=== PATIENT | female | born 1985 | race Caucasian/White ===

== ENCOUNTER 2022-03-15 14:01 | Emergency (ER) | payer OTHER, SELFPAY ==
[2022-03-15 14:08] VITALS: BP 180/112; PULSE 114; RESP 18; TEMP 37.2; O2SAT 98
--- NOTE | 2022-03-15 16:53 | ED.NAVMDI ---
HPI - Nausea/Vomiting/Diarrhea General Chief complaint: Nausea/Vomiting/Diarrhea Stated complaint: nausea X 5 days weak Time Seen by Provider: 03/15/22 16:45 Source: patient, RN notes reviewed and old records reviewed Mode of arrival: ambulatory Limitations: no limitations History of Present Illness HPI Narrative: 36-year-old female who presents to [facility] with complaints of upper epigastric discomfort, has not been able to keep any food or fluids down since . Patient's blood pressure is elevated and she says she feels like her heart is beating out of her chest, she is afebrile, SaO2 is 98% on room air. Patient does states she has some back pain but that is not unusual for her, denies any history of kidney stones.Patient reports small formed stool this morning. MD elicited complaint: nausea, vomiting and abdominal pain (epigastric region) Onset (ago): day(s) (5) Description of vomiting: food contents and watery Associated nausea: Yes Exacerbating factors: eating and other (drinking any fluids) Treatment prior to arrival: other (tums) Related Data Home Medications Medication Instructions Recorded Confirmed No Home Medications 03/15/22 03/15/22 Allergies Allergy/AdvReac Type Severity Reaction Status Date / Time Penicillins Allergy Unknown Verified 03/15/22 15:59 Review of Systems Review of Systems: CONSTITUTIONAL: Denies fever, chills, or sweats. ENT: Denies rhinorrhea, congestion, sore throat, or otalgia. CARDIOVASCULAR: Denies chest pain, palpitations, or edema. RESPIRATORY: Denies cough or dyspnea. GASTROINTESTINAL: Reports upper epigastric abdominal pain, nausea, vomiting, no diarrhea. GENITOURINARY: Denies dysuria or hematuria. SKIN: Denies rash or itching. MUSCULOSKELETAL: Reports back pain,no joint pain, or myalgia. NEUROLOGIC: Denies headache, numbness, reports weakness. All systems reviewed & are unremarkable except as noted in HPI and below PMFSH Surgical History Surgical History (Updated 03/20/22 @ 20:00 by Helen Rivero NP) Previous section x3 Social History Social History (Updated 03/20/22 @ 20:08 by Helen Rivero NP) Smoking status: Never smoker Alcohol intake: never Substance use: never Living arrangements: with family Gender identity (if verbalized by the patient): Female Comments At time of signature, agree with nursing past medical, surgical, social and family history. There is no relevant family history pertinent to the presenting complaint Exam Narrative: GENERAL: Well-appearing, well-nourished, and in no acute distress. HEAD: Normocephalic, atraumatic. EYES: PERRLA, conjunctivae clear, and EOMI. ENT: Nares clear. Mucous membranes moist. Oropharynx without edema, erythema, or lesions. Tonsils not enlarged and without exudate. NECK: Supple. No lymphadenopathy CHEST: Speaks in full sentences. No respiratory distress. HEART: Regular rate and rhythm. ABDOMEN: Soft, flat, nondistended. No guarding, rebound tenderness, or rigid. No pulsatilla masses. Bowel sounds present in all four quadrants. No organomegaly. Negative Adkins?s sign. No periumbilical tenderness.positive for some upper epigastric tenderness, No Supra public tenderness or distension. Good femoral pulses bilaterally. No hernia noted. No scars or surface trauma. Positive for nausea and vomiting. SKIN: Warm, dry, no rash. NEURO:? Alert and oriented x3. PSYCH: Normal mood and affect Course Course Emergency Course: Patient is aware of diagnosis, understands and agrees to treatment plan.? Anticipatory guidance given.? Patient agrees to follow-up as directed and is aware of reasons to seek care at the emergency department. Portions of this record may have been created with voice recognition software Level of Care: Express Care Visit Vital Signs Vital signs: Vital Signs Temperature 37.2 C 03/15/22 14:08 Pulse Rate 114 H 03/15/22 14:08 Respiratory Rate 18 03/15
== END 2022-03-15 17:10 | disposition short-term general hospital (02) ==
PROVIDERS: Emergency Provider Registered Nurse; PCP Physician Assistant
DX: R10.13 Epigastric pain (principal); E86.0 Dehydration
CPT/HCPCS: 81003; 99212; G0463

== ENCOUNTER 2023-07-11 18:44 | Emergency (ER) | payer OTHER, SELFPAY ==
[2023-07-11 18:49] VITALS: BP 155/94; PULSE 87; RESP 20; TEMP 36.7; O2SAT 95
--- NOTE | 2023-07-11 18:49 | ED.ABDPAIN ---
HPI - Abdominal Pain General Chief Complaint: Abdominal Pain Stated Complaint: abdominal pain Time Seen by Provider: 07/11/23 18:46 Source: patient Mode of arrival: ambulatory Limitations: no limitations History of Present Illness HPI narrative: 38-year-old female with a history of diverticulitis presents to the ER with a 2 day history of -- nausea/ vomiting which started yesterday but has improved today -- loose stools. No blood or mucus noted. -- intermittent left lower quadrant abdominal pain. No fever or chills. Mother had the history of colon cancer MD elicited complaint: abdominal pain Pertinent past history: none Onset (ago): day(s) ( Started yesterday) Pain Consistency: intermittent Location: LLQ Severity: mild Pain scale (0-10): 6 Quality: aching Radiation: LLQ Migration to: no migration Exacerbating factors: nothing Relieving factors: nothing Associated symptoms: nausea, vomiting and diarrhea Related Data Home Medications Medication Instructions Recorded Confirmed No Home Medications 03/15/22 07/11/23 Allergies Allergy/AdvReac Type Severity Reaction Status Date / Time Penicillins Allergy Unknown Verified 07/11/23 18:56 Review of Systems Review of Systems: All systems reviewed & are unremarkable except as noted in HPI and below Constitutional: Constitutional: Reports as per HPI and Reports no additional constitutional complaints Eyes: Eyes: Reports as per HPI and Reports no additional eye complaints ENT: Reports system reviewed and no additional complaints, except as documented and Reports as per HPI Cardiovascular: Cardiovascular: Reports as per HPI and Reports no additional cardiovascular complaints Respiratory: Respiratory: Reports as per HPI and Reports no additional respiratory complaints Gastrointestinal: Gastrointestinal: Reports as per HPI, Reports no additional gastrointestinal complaints and Reports abdominal pain Comments: left lower quadrant abdominal pain Genitourinary: Genitourinary: Reports no additional female genitourinary complaints and Reports as per HPI Musculoskeletal: Musculoskeletal: Reports no additional musculoskeletal complaints and Reports as per HPI Integumentary/Breasts: Skin/Breast: Reports system reviewed and no additional complaints, except as docu and Reports as per HPI Neurologic: Reports system reviewed and no additional complaints, except as documented and Reports as per HPI Psychiatric: Psychiatric: Reports no additional psychiatric complaints and Reports as per HPI Endocrine: Endocrine: Reports no additional endocrine complaints and Reports as per HPI Hematologic/Lymphatic: Hematologic/Lymphatic: Reports no additional hematologic/lymphatic complaints and Reports as per HPI Allergic/Immunologic: Allergic/Immunologic: Reports no additional allergic/immunologic complaints and Reports as per [facility] Past Medical History Medical History (Updated 07/11/23 @ 20:16 by Jeffrey Rhodes MD) Diverticulitis Surgical History Surgical History Previous section x3 Family History Family History (Updated 07/11/23 @ 19:06 by Jeffrey Rhodes MD) Other Colon cancer Social History Social History Smoking status: Never smoker Alcohol intake: never Substance use: never Living arrangements: with family Gender identity (if verbalized by the patient): Female Exam Narrative: afebrile. Const: General: healthy appearing Nutritional Appearance: well nourished Orientation/consciousness: patient oriented x3 Limitations: no limitations HENMT: Head: normal to inspection Ears: external ears normal Face/Nose/Sinus: Normal external nose present Face and sinus: normal facial exam Mouth: Yes Normal oral and palatal mucosa present Throat: posterior oropharynx normal Eyes: Conjunctivae: conjunctivae norm
--- NOTE | 2023-07-11 19:10 | PC.NURSE ---
patient report received from JAIME Phillips for continuation of care into shift mgr.
[2023-07-11 19:12] LABS: Basophils Absolute Auto 0.06 K/mm3 (0.00-0.10); Basophils Percent Auto 0.9 % (0.0-1.0); Eosinophils Percent Auto 1.4 % (1.0-6.0); Hematocrit 40.7 % (35.0-49.0); Hemoglobin 13.2 g/dL (12.0-15.0); Immature Granulocyte Absolute 0.02 K/mm3 (0.00-0.00); Immature Granulocyte Percent A 0.3 % (0.0-0.0); Lymphocytes Absolute Auto 2.06 K/mm3 (1.10-4.50); Lymphocytes Percent Auto 29.6 % (18.0-42.0); Mean Corpuscular HGB Conc 32.4 g/dL (32-36); Mean Corpuscular Hemoglobin 29.6 pg (27.0-31.0); Mean Corpuscular Volume 91.3 fL (78.0-102.0); Mean Platelet Volume 8.7 fl (9.2-11.8); Monocytes Percent Auto 5.7 % (2.0-11.0); Neutrophils Absolute Auto 4.33 K/mm3 (1.70-7.20); Neutrophils Percent Auto 62.1 % (50.0-70.0); Platelet Count Result 326 K/mm3 (150-420); Red Blood Count 4.46 M/mm3 (4.20-5.40); Red Cell Distribution Width 14.5 % (11.6-14.4)
[2023-07-11 19:13] LABS: Appearance Urine Clear (Clear); Bilirubin Urine Negative (Negative); Blood Urine Trace-intact (Negative); Color Urine Light Yellow (Yellow); Glucose Urine UA Negative (Negative); Ketones Urine Negative (Negative); Leukocyte Esterase Ur Negative LEU/UL (Negative); Nitrate Urine Negative (Negative); Protein Urine Negative (Negative); Specific Grav Ur <= 1.005 (1.010-1.020); Urobilinogen Urine 0.2 mg/dL (0.2-1.0)
[2023-07-11 19:18] LABS: Add Urine Microscopic? YES; Bacteria Urine Trace /hpf; RBC Urine 0-2 /hpf (0-2); Squamous Epithelial Cell Urine Rare /hpf (Few); WBC Urine 0-3 /hpf (0-3)
[2023-07-11 19:25] LABS: Prothrombin Time 10.7 Seconds (9.50-12.1)
[2023-07-11] MEDS: LACTATED RINGERS 1,000 ML 999 ML IV CONT (19:25)
[2023-07-11 19:29] LABS: Alanine Aminotransferase 28 U/L (14-59); Albumin Level 3.9 g/dL (3.4-5.0); Alkaline Phosphatase 64 U/L (46-116); Anion Gap 14 mmol/L (4-12); Aspartate Amino Transferase 26 U/L (15-37); Bilirubin,Total 0.5 mg/dL (0.00-1.00); Blood Urea Nitrogen 11 mg/dL (7-18); Calcium 8.4 mg/dL (8.5-10.1); Carbon Dioxide 25 mmol/L (21-32); Chloride 105 mmol/L (98-108); Estimated CRCL calculation 105 ml/min; Estimated Glomerular Filt Rate > 60; Glucose 112 mg/dL (70-99); Lipase 38 U/L (16-77); Osmolality Calculated 298 mOsm/kg (285-295); Partial Thromboplastin Time 25.4 Sec (23.9-30.70); Potassium 3.6 mmol/L (3.5-5.1); Sodium 144 mmol/L (136-145); Total Protein 7.6 g/dL (6.4-8.2)
[2023-07-11 19:34] LABS: Lactic Acid Reflex 1.3 mmol/L (0.4-2.0)
--- NOTE | 2023-07-11 20:13 | PC.NURSE ---
Dr. Rhodes at bedside for update of results.
[2023-07-11 20:37] VITALS: BP 158/73; PULSE 83; RESP 18; TEMP 36.6; O2SAT 100
== END 2023-07-11 20:38 | disposition home or self-care (01) ==
PROVIDERS: Emergency Provider Internal Medicine Critical Care Medicine; PCP Physician Assistant
DX: K57.30 Diverticulosis of large intestine without perforation or abscess without bleeding (principal)
CPT/HCPCS: 36415; 80053; 81001; 83605; 83690; 85025; 85610; 85730; 96360; 99283; J7120

== ENCOUNTER 2024-07-15 00:44 | Day surgery (SDC) | payer OTHER, SELFPAY ==
[2024-07-07 13:45] VITALS: BMI 30.9
--- OUTSIDE RECORDS SUMMARY | 2024-07-15 00:47 | XMS_ITS | Data Portability ---
Author Organization [facility] Nato SERRANOvenita Mai Address [address] [facility] [place] [address] Care Team Providers Care Joy Loader Name Role Phone URBANODAO Payroll Administrative Assistant TATIANA AVILA Primary Care Provider Unavailabl e Assessment Encounter Date Assessment Date Assessment LastModified by Organization Details LastModified Time 05/29/2024 05/29/2024 Dyspnea on exertion: NYHA class 2 symptoms. Due to family history of congestive heart failure and CAD, obtain echocardiogram to assess for structural/valvul ar heart disease. Palpitations: Discussed hydration, limiting caffeine/alcohol, modulating dietary intake of potassium/magnesi um. Obtain extended Holter monitor. Hypertension: BP borderline elevated. Has not up titrated verapamil which was recently suggested by PCP. Encouraged low-sodium diet, ambulatory blood pressure monitoring and bringing log to the next office visit. Hypertension care instructions and risks of untreated blood pressure reinforced. Mixed hyperlipidemia: Borderline elevation in LDL. Diet/exercise reinforced. Based on cardiac testing may need to consider statin therapy but no acute indication at this juncture. We will request a routine in office assessment in 4 weeks' time for ongoing management of above-mentioned cardiac conditions. We appreciate the opportunity to participate in the care of your patient. 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 discussed options for period control ; will try low dose OCPs and see her back in 4 months for f/u Not available 06/25/2024 10:51:45 Plan of Treatment Reminders Order Date Submit Date Provider Last Modified By Organization Details Last Modified Time Details Appointments ANY 15 2024 09:15A Shlomo Nayak MD Not available Not available Not available ANY 15 2024 01:00P M Dao Cordova MD Not available Not available Not available ANY 15 2024 01:30P M TATIANA AVILA [facility] Not available Not available Not available Lab TSH, serum or plasma 2024 025 [email or web address] [facility], [address], [place], [address], 06/27/2024 10:41:11 CBC 2024 025 [email or web address] [facility], [address], [place], [address], 06/27/2024 10:41:11 lipid panel, serum 2024 025 [email or web address] [facility], [address], [place], [address], 06/27/2024 10:41:12 CMP, serum or plasma 2024 025 [email or web address] [facility], [address], [place], [address], 06/27/2024 10:41:12 HbA1c (hemoglob in A1c), blood 2024 025 [email or web address] [facility], [address], [place], [address], 06/27/2024 10:41:12 cytology report, thin prep, smear or scraping, cervical or vaginal 2024 025 DANIELE [facility], [address], [place], [address], 06/27/2024 16:21:59 Hepatitis C IgG Ab, qual, serum 2024 025 DANIELE [facility], [address], [place], [address], 06/13/2024 08:25:35 Referral sleep medicine referral - Please evaluate and Rx for MARIAM 2024 025 YOVANY Phelps MD, [address] [facility] [address], [address] Floor, [place], [address], 06/27/2024 11:55:22 cardiolog ist referral 2024 025 DANIELE Nayak MD, [address], [place], [address], 05/28/2024 11:58:26 obstetric beto and gynecolog ist referral 2024 025 DANIELE Cordova MD, [address] [facility] [address], [place], [address], 06/03/2024 10:31:31 counselin g referral 2024 025 DANIELE Goodman (), [address] , [place], [address], 07/10/2024 14:09:02 Procedures None recorded. Surgeries None recorded. Imaging exercise stress test 2024 025 [facility], [address], [address], [place], [address], 06/27/2024 11:20:46 MAMMO, screening , digital, bilateral 2024 025 [facility], [address] [facility] , [place], [address], 06/25/2024 10:40:05 electroca rdiogram 2024 025 [email or web address] In-Office Order, Internal Use Only DO Not Attach Compendium DO Not Attach Compendium, Do Not Delete/merge, [id number] 05/29/2024 12:09:09 US, echocardi ogram, transthor acic, complete, w/ color flow 2024 025 [facility], [address], [address], [place], [address], 06/18/2024 13:46:54 MAMMO, screening , bilateral 2024 025 [facility], [address] [place], [address], 06/25/2024 08:55:22 Medication Orders losartan 25 mg tablet 2024 025 [facility], [address] [place] [address], [address], 06/27/2024 10:41:20 verapamil ER 120 mg 24 hr capsule,e xtended release 2024 025 [facility], [address] [place] [address], [address], 06/27/2024 10:41:21 Junel Fe 24 1 mg-20 mcg (24)/75 mg (4) tablet 2024 025 [facility], [address] [place] [address], [address], 06/27/2024 10:23:31 verapamil ER 240 mg 24 hr capsule,e xtended release 2024 025 [id number], [address], [place], [place], [id number], 05/27/2024 11:21:44 buspirone 10 mg tablet 2024 025 [facility][id number], [address], [place], [place], [id number], 05/27/2024 11:21:44 fluoxetin e 20 mg capsule 2024 025 [facility] #[id number], [address], [place], [place], [id number], 05/27/2024 11:21:45 Patient TargetsNo targets recorded. Patient Instructions Encounter Date Encounter Id Patient Instructions Last Modified By Organization Details Last Modified Time 05/27/2024 [id number] Plan of care has been discussed with patient including expected therapeutic benefits and potential side effects of prescribed medication and treatments. Patient verbalizes understanding and is in agreement with the plan of care. Patient was instructed to keep all scheduled appointments and contact the clinic for any additional problems. Health Maintenance: - CRC screening (45-75):Due at 45 years. - Osteoporosis screening: Due at 65. - Lipid screening (>45 unless additional risk factors): 02/26/24 - HIV : negative 09/04/18 - HepC: ordered -Eye exam: unknown -Dental Exam: unknown - Immunizations: - Influenza: Declined - Prevnar 20: Due at 65. - Tdap/Td (h26adahc): 09/04/18 - Zoster (>60):Due at 60. - COVID-19: Declined -Labs ordered this visit: HCV Females: Pap smear: 2019, patient to f/u with Ob Mammogram: ordered DEXA: N/A [email or web address] Not available 05/28/2024 10:05:07 05/29/2024 [id number] high blood pressure: care instructions Not available 05/29/2024 12:09:09 A healthy lifestyle: care instructions Not available 05/29/2024 15:46:36 06/25/2024 [id number] painful menstrua l cramps: care instructions Not available 06/25/2024 10:52:27 learning about breast cancer screening Not available 06/25/2024 10:39:53 06/27/2024 [id number] A healthy lifestyle: care instructions [email or web address] Not available 06/27/2024 10:41:11 Reason for Referral Counseling Referral for Mixe d anxiety and depressive disorder Referring Physician: Tatiana Avila [facility], Encounter Date: 05/27/2024 Color Shop Helper And Gynecologis t Referral for Screening for malignant neoplasm of cervix Referring Physician: Tatiana Avila [facility], Encounter Date: 05/27/2024 Residential Roofer Referral for Ch est pain Referring Physician: Tatiana Avila [facility], Encounter Date: 05/27/2024 Sleep Medicine Referral for Snoring Please evaluate and Rx for MARIAM Referring Physician: Albin Nayak Cardiology, Encounter Date: 06/27/2024 Results Created Date Observation Date Name Description Value Unit Range Abnormal Flag Note LastModifiedBy Organization Detail LastModifiedTime 06/13/1906/13/2024 INTER PRETA TION: interpretati on: Commen t Not infec lucy with HCV unles s early or acute infec tion is suspe cted (whic h may be delay ed in an immun ocomp romis ed indiv idual ), or other evide nce exist s to indic ate HCV infec tion. Not Available [facility] ([facility]) [address] [facility] [address], [place], [address], 06/13/2024 08:25:34 06/13/19 25 06/13/2024 HCV ANTIB FRANNY RFX TO QUANT PCR HCV Ab NON REACTI VE nonrea ctive Not Available [facility] ([facility]) [address] [facility] [address], [place], [address], 06/13/2024 08:25:35 06/26/19 25 06/27/2024 IGP,C TNGTV ,RFX APTIM A HPV ASCU diagnosis: COMMEN T NEGAT RICHARD FOR INTRA EPITH ELIAL LESIO N OR MALIG SREE . FUNGA L ORGAN ISMS MORPH OLOGI VALERIE CONSI STENT WITH MACIEL DA SPECI ES ARE PRESE NT. Not Available [facility] ([facility]) [address] [facility] [address], [place], [address], 06/27/2024 16:21:59 06/26/19 25 06/27/2024 IGP,C TNGTV ,RFX APTIM A HPV ASCU specimen adequacy: COMMEN T Satis facto ry for evalu ation . No endoc ervic al compo nent is ident ified . Not Available [facility] ([facility]) [address] [place], [address], 06/27/2024 16:21:59 06/26/19 25 06/27/2024 IGP,C TNGTV ,RFX APTIM A HPV ASCU clinician provided ICD10: ZULMA Perera Z01.4 19 Not Available [facility] ([facility]) [address] [place], [address], 06/27/2024 16:21:59 06/26/19 25 06/27/2024 IGP,C TNGTV ,RFX APTIM A HPV ASCU performed by: Maryse Solano (ASCP ) Not Available [facility] ([facility]) [address] [place], [address], 06/27/2024 16:21:59 06/26/19 25 06/27/2024 IGP,C TNGTV ,RFX APTIM A HPV ASCU . . Not Available [facility] ([facility]) [address] [place], [address], 06/27/2024 16:21:59 06/26/19 25 06/27/2024 IGP,C TNGTV ,RFX APTIM A HPV ASCU note: ZULMA Perera The Pap smear is a scree lazara test desig amy to aid in the detec tion of dusty ligna nt and malig nant condi tions of the uteri ne cervi x. It is not a diagn ostic proce dure and shoul d not be used as the sole means of detec ting cervi heber cance r. Both false -posi tive and false -nega tive repor ts do occur . Not Available [facility] ([facility]) [address] [place], [address], 06/27/2024 16:21:59 06/26/19 25 06/27/2024 IGP,C TNGTV ,RFX APTIM A HPV ASCU test methodology: COMMEN T This liqui d based ThinP rep(R ) pap test was benito reyse with the use of an image guide maris petty Not Available [facility] ([facility]) [address] [place], [address], 06/27/2024 16:21:59 06/26/19 25 06/27/2024 IGP,C TNGTV ,RFX APTIM A HPV ASCU . COMMEN T The HPV DNA refle x crite juan were not met with this speci men resul t there fore, no HPV testi ng was perfo rmed. Not Available [facility] ([facility]) [address] [place], [address], 06/27/2024 16:21:59 06/26/19 25 06/27/2024 IGP,C TNGTV ,RFX APTIM A HPV ASCU chlamydia, nuc. acid amp NEGATI VE negati ve Not Available [facility] ([facility]) [address] [place], [address], 06/27/2024 16:21:59 06/26/19 25 06/27/2024 IGP,C TNGTV ,RFX APTIM A HPV ASCU gonococcus, nuc. acid amp NEGATI VE negati ve Not Available [facility] ([facility]) [address] [place], [address], 06/27/2024 16:21:59 06/26/19 25 06/27/2024 IGP,C TNGTV ,RFX APTIM A HPV ASCU trich vag by CHETAN NEGATI VE negati ve Not Available [facility] ([facility]) [address] [place], [address], 06/27/2024 16:21:59 05/01/19 25 04/30/2023 CT, abdom en + pelvi s, w/ contr ast No observ ation record ed. [facility] [place], [address], 05/01/2024 14:06:05 05/29/19 25 05/29/2024 elect rocar diogr am No observ ation record ed. [facility] In-Office Order Internal Use Only DO Not Attach Compendium DO Not Attach Compendium, Do Not Delete/merge, [id number] 05/29/2024 17:28:30 05/29/19 25 elect rocar diogr am No observ ation record ed. [email or web address] Not Available 2024 17:28:31 06/19/19 25 06/17/2024 US, echoc ardio gram, trans thora cic, compl ete, w/ color flow No observ ation record ed. [facility] [address] [facility] [address], [place], [address], 06/18/2024 16:12:07 06/19/19 25 06/17/2024 US, echoc ardio gram, trans thora cic, compl ete, w/ color flow No observ ation record ed. [facility] [address] [place], [address], 06/18/2024 16:12:08 06/24/19 25 alma r monit or No observ ation record ed. [email or web address] [address] [facility] [address], [place], [address], 06/23/2024 10:44:29 Result Notes None recorded. Problems Name Problem SNOMED Code Status Onset Date Resolution Date Notes Provider Name and Address Organization Details Recorded Time Pregnanc y 12713405 Completed 201711/05/2017 [place] meza, [place] - [facility] 9 10:30:25 Placenta previa 60446555 Active 2017 LUDWIN Gómez, [place] - [facility] 5 10:21:53 Pregnanc y 75769934 Completed 201811/19/2018 No[place] [facility] 9 10:30:25 Deliveri es by [id number] Completed x2, vertical skin incision Radhika Darby [place] null, [place] [facility] 9 12:03:50 Past pregnanc y history of placenta previa 949422477 Completed 2nd pregnanc y Radhika Darby MA null, [place] - [facility] 9 12:03:50 Vitamin D deficien cy 79365711 Completed Radhika Darby [place], [place] [facility] 9 12:03:50 Barbitur ate abuse 779878482 Completed hx rx Fioricet Radhika Darby MA null, [place] - [facility] 9 12:03:50 Phenobar bitone level - finding 095922378 Completed Radhika Darby [place], [place] [facility] 9 12:03:50 Cannabis abuse 15015481 Completed Radhika Darby MA null, [place] - [facility] 9 12:03:50 Pain in lumbar spine 269049858 Active 2017 LUDWIN Gó[place]z [place] [facility] 5 10:21:53 Lumbago with sciatica 390865348 Active 2017 LUDWIN G[place] [facility] 5 10:21:53 Mixed anxiety and depressi ve disorder 909716651 Active 2024 Jeannie Bonner MD Attn: Accounting ,[address] [place], [address] , [place] [facility] 5 12:32:16 [facility] hyper[facility] tessa 19508179 Active 2024 Jeannie Bonner MD Attn: Accounting ,[address] [place], [address] , [place] [facility] 5 12:32:24 Past pregnanc y history of section 058089334 Active 2017 LUDWIN Gó[place]z [place] [facility] 5 10:21:53 High risk pregnanc y 84773046 Active 2017 Mary Cardenas RMA [place] [facility] 5 10:21:53 Nausea and vomiting 15826285 Active Mary Carden[place] R[place] [facility] 5 10:25:53 Divertic ulitis 206261543 Active Mary Cardenas R[place] [facility] 5 10:25:53 Dehydrat ion 77681105 Active Mary Carden[place] R[place] [facility] 5 10:25:53 Divertic ular disease 345331277 Active Mary Carden[place] R[place] [facility] 5 10:25:53 Epigastr ic pain 97536883 Active Mary Carden[place] R[place] [facility] 5 10:25:53 Lumbar spondylo sis 618827654 Active 2017 Mary Carden[place] R[place] [facility] 5 10:21:53 Fatigue 00589707 Active 2017 Mary Carden[place] R[place] [facility] 5 10:21:53 Vitamin D deficien cy 37969492 Active 2017 Mary Carden[place] R[place] [facility] 5 10:21:53 Backache 928000519 Active 2017 Mary Carden[place] R[place] [facility] 5 10:21:53 Abnormal vaginal Papanico laou smear 469002203 Active 2017 Mary Carden[place] R[place] [facility] 5 10:21:53 Pain in pelvis 96544390 Active 2017 Mary Carden[place] R[place] [facility] 5 10:21:53 Thoracic back pain 162620719 Active 2017 Mary Carden[place] R[place] [facility] 5 10:21:53 Muscle spasm of cervical muscle of neck 39236971364 4 Active 2017 Mary Carden[place] R[place] [facility] 5 10:21:53 Problem Notes None recorded. Procedures Surgical History Date Name Laterality Status Provider Name and Address Organization Details Recorded Time 5 Date of Last Pap Smear completed Afsaneh Dennis RN [facility] 06/27/2024 16:32:35 9 Suture/Staple removal completed Dao Cordova MD Attn: Accounting,[address] [facility], [place], [address], [facility] 11/21/2018 12:11:55 9 Caesarean Section completed Radhika Darby MA [facility] 11/21/2018 11:57:29 5 Colposcopy completed Germaine Ayoub MD Attn: Accounting,[address] [facility], [place], [address], [facility] 02/26/2015 18:15:26 4 Caesarean Section completed Cyndy Franco MA [facility] 02/11/2015 10:46:48 Imaging Results Imaging Date Name Status LastModified by Organization Details LastModified Time 04/30/2023 CT, abdomen + pelvis, w/ contrast completed [facility] [address] [place], [address], 05/01/2024 14:06:05 05/29/2024 electrocardiogram completed [facility] In-Offi ce Order Internal Use Only DO Not Attach Compendium DO Not Attach Compendium, Do Not Delete/merge, [id number] 05/29/2024 17:28:30 05/29/2024 electrocardiogram completed Informa tion not available 05/29/2024 17:28:31 06/17/2024 US, echocardiogram, transthoracic, complete, w/ color flow completed [facility] [address], [address], 06/18/2024 16:12:07 06/17/2024 US, echocardiogram, transthoracic, complete, w/ color flow completed [facility] [address], [place], [address], 06/18/2024 16:12:08 06/23/2024 holter monitor completed [facility] [address], [place], [address], 06/23/2024 10:44:29 Procedure Notes None recorded. Medical Equipment None Reported. Allergies Allergen ID Allergen Name Allergen Category Reaction Reaction Severity Criticality Documentation Date Start Date Code Code System Note Provider Name and Address Organization Details Recorded Time 940610 Product containin g penicilli n (product) medicatio n Not available Not available Not available 05/29/2024 19803 8001 SNOMED Not Available Not Available Not Available 96428 penicilli n V Not available anaphylax is mild Not available 05/19/2014 7926 RxNorm Not Available Not Available Not Available Medications Name Sig Start Date Stop Date Status Note LastModified by Organization Details LastModified Time vitamin d 57414 unit caps active Not Available Not Available No t Available meloxicam 15 mg tabs 12/01 completed duplicat e Not Available Not Available Not Available cyclobenz aprine hcl 10 mg tabs 12/01 completed duplicat e Not Available Not Available Not Available butalbita l/acetami nophen/ca ffeine 50-325-40 mg tabs 04/19 completed Not Available Not Available Not Available oxycodone /acetamin ophen 5-325 mg tabs 04/19 completed Not Available Not Available Not Available tramadol hcl 50 mg tabs 04/19 completed Not Available Not Available Not Available but/apap/ caf tabbutalb ital/acet aminophen /caffeine 12/01 completed Not Available Not Available Not Available methylpre d aly 4mgmethyl prednisol one dose pack 12/01 completed Not Available Not Available Not Available cyclobenz apr tab 10mgcyclo benzaprin e hcl 12/01 completed duplicat e Not Available Not Available Not Available losartan 50 mg tablet TAKE 1 TABLET BY MOUTH ONCE DAILY FOR 30 DAYS active Not Available Not Available No t Available cyclobenz aprine 10 mg tablet TAKE 1 TABLET BY MOUTH THREE TIMES DAILY NEEDED 04/11 completed Not Available Not Available Not Available Stool Softener 100 mg capsule 02/25 completed Not Available Not Available Not Available ibuprofen 800 mg tablet 02/25 completed Not Available Not Available Not Available Procardia XL 30 mg tablet,ex tended release Take 1 tablet every day by oral route. 02/25 completed Not Available Not Available Not Available fluconazo le 150 mg tablet TAKE ONE TABLET BY MOUTH A ONE-TIME DOSE active Not Available Not Available No t Available hydrocodo ne 5 mg-acetam inophen 325 mg tablet 02/25 completed Not Available Not Available Not Available meloxicam 15 mg tablet Take 1 tablet every day by oral route. 04/19 completed Not Available Not Available Not Available metronida zole 0.75 % (37.5 mg/5 gram) vaginal gel Insert 1 applicat orful every day by vaginal route at bedtime for 5 days. 06/06 completed Not Available Not Available Not Available verapamil ER (SR) 180 mg tablet,ex tended release TAKE 1 TABLET BY MOUTH EVERY DAY 05/29 completed Not Available Not Available Not Available metronida zole 500 mg tablet TAKE 1 TABLET BY MOUTH THREE TIMES DAILY 02/25 completed Not Available Not Available Not Available ciproflox acin 500 mg tablet TAKE 1 TABLET BY MOUTH TWICE DAILY FOR 10 DAYS 02/25 completed Not Available Not Available Not Available omeprazol e 40 mg capsule,d elayed release TAKE 1 CAPSULE BY MOUTH DAILY active Not Available Not Available No t Available tramadol 50 mg tablet TAKE ONE TABLET BY MOUTH THREE TIMES DAILY 04/11 completed Not Available Not Available Not Available butalbita l-acetami nophen-ca ffeine 50 mg-325 mg-40 mg tablet TAKE ONE TABLET BY MOUTH EVERY 4 HOURS NEEDED, #30 month supply 02/25 completed Not Available Not Available Not Available Vitamin tablet Take 1 tablet every day by oral route for 30 days. 02/25 completed Not Available Not Available Not Available oxycodone -acetamin ophen 5 mg-325 mg tablet Take 1 tablet every 6 hours by oral route. 02/25 completed Not Available Not Available Not Available Zoloft 50 mg tablet one po qday: CALL OFFICE FOR APPT 02/25 completed Not Available Not Available Not Available dicyclomi ne 20 mg tablet TAKE 1 TABLET BY MOUTH EVERY 6 HOURS 02/25 completed Not Available Not Available Not Available buspirone 10 mg tablet TAKE 1 TABLET BY MOUTH THREE TIMES DAILY active Not Available Not Available No t Available losartan 25 mg tablet TAKE 1 TABLET BY MOUTH ONCE DAILY active Not Available Not Available No t Available diclofena c sodium 75 mg tablet,de layed release Take 1 tablet twice a day by oral route for 30 days. 04/11 completed Not Available Not Available Not Available ibuprofen 600 mg tablet 02/25 completed Not Available Not Available Not Available methylpre dnisolone 4 mg tablets in a dose pack Take by oral route as directed on label. 04/19 completed Not Available Not Available Not Available Vitamin D2 1,250 mcg (50,000 unit) capsule 04/19 completed Not Available Not Available Not Available ondansetr on 4 mg disintegr ating tablet TAKE 1 TABLET BY MOUTH EVERY 8 HOURS NEEDED FOR NAUSEA 02/25 completed Not Available Not Available Not Available fluoxetin e 20 mg capsule TAKE 1 CAPSULE BY MOUTH EVERY DAY active Not Available Not Available No t Available dicyclomi ne 10 mg capsule TAKE 1 CAPSULE BY MOUTH THREE TIMES DAILY active Not Available Not Available No t Available naproxen 500 mg tablet 02/25 completed Not Available Not Available Not Available verapamil ER 240 mg 24 hr capsule,e xtended release TAKE 1 CAPSULE BY MOUTH EVERY DAY active pt is taking the 120mg Not Available Not Available Not Available amoxicill in 875 mg-potass ium clavulana te 125 mg tablet TAKE 1 TABLET BY MOUTH TWICE DAILY 02/25 completed Not Available Not Available Not Available verapamil ER 120 mg 24 hr capsule,e xtended release TAKE 1 CAPSULE BY MOUTH ONCE DAILY active Not Available Not Available No t Available cholecalc iferol (vitamin D3) 1,250 mcg (50,000 unit) capsule Take 1 cap by oral route weekly for 8 weeks, then use otc mvi with d daily. 2014 active Not Available Not Available Not Avai lable 28 mg iron-800 mcg tablet TAKE 1 TABLET BY MOUTH EVERY DAY 02/25 completed Not Available Not Available Not Available Fioricet 50 mg-300 mg-40 mg capsule Take 1 capsule twice a day by oral route as needed for 30 days. 03/15/ 2019 11/19 /2024 completed Not Available Not Available Not Available PrePlus 27 mg iron-1 mg tablet 02/25 completed Not Available Not Available Not Available Shahrzad 24 Fe 1 mg-20 mcg (24)/75 mg (4) tablet TAKE 1 TABLET BY MOUTH ONCE DAILY active Not Available Not Available No t Available Vitals Date Recorded Body height Body mass index (BMI) Body weight Oxygen saturation Oxygen saturation in Arterial blood by Pulse oximetry Heart rate Respiratory rate Body temperature Systolic blood pressure Diastolic blood pressure Provider Name and Address Organization Details Last Updated DateTime 5 162.56 cm 32.4 kg/m2 42139.1 6 g 98 % 98 % 78 /min 16 /min 97.7 [degF] 148 mm[Hg] 84 mm[Hg] Georgie Burns MA [facility] 5 10:49:28 Date Recorded Body height Body mass index (BMI) Body weight Heart rate Oxygen saturation Oxygen saturation in Arterial blood by Pulse oximetry Systolic blood pressure Diastolic blood pressure Provider Name and Address Organization Details Last Updated DateTime 5 162.56 cm 31.9 kg/m2 24895.1 8 g 92 /min 97 % 97 % 142 mm[Hg] 80 mm[Hg] Leah Sanchez RN [facility] 5 11:55:01 Date Recorded Body height Body mass index (BMI) Body weight Systolic blood pressure Diastolic blood pressure Provider Name and Address Organization Details Last Updated DateTime 06/25/2024 162.56 cm 32.3 kg/m2 87104.51 g 128 mm[Hg] 77 mm[Hg] LUDWIN Gómez [facility] 5 10:35:13 Date Recorded Body height Body mass index (BMI) Body weight Respiratory rate Heart rate Oxygen saturation Oxygen saturation in Arterial blood by Pulse oximetry Systolic blood pressure Diastolic blood pressure Provider Name and Address Organization Details Last Updated DateTime 5 162.56 cm 32.3 kg/m2 22043.3 7 g 18 /min 74 /min 94 % 94 % 128 mm[Hg] 68 mm[Hg] Carolyn Stacy LPN [facility] 5 10:25:23 Date Recorded Body height Body mass index (BMI) Body weight Oxygen saturation Oxygen saturation in Arterial blood by Pulse oximetry Inhaled oxygen flow rate Heart rate Respiratory rate Body temperature Systolic blood pressure Diastolic blood pressure Systolic blood pressure Diastolic blood pressure Provider Name and Address Organization Details Last Updated DateTime 5 162.56 cm 32.8 kg/m2 66789.2 2 g 96 % 96 % 2 L/min 87 /min 16 /min 97.7 [degF] 162 mm[Hg] 94 mm[Hg] 161 mm[Hg] 93 mm[Hg] Georgie Burns MA [place] [facility] 5 12:09:16 Social History Question Answer Notes LastModified by Organizat ion Details LastModified Time Tobacco Smoking Status Never Smoker Omar Hannah MA [facility], [place] - [facility] 05/19/2014 11:41:19 What Is Your Level Of Alcohol Consumption? Moderate Information not available 02/26/2024 Are You Blind Or Do You Have Difficulty Seeing? No Need Glasses Information not available 02/26/2024 What Is Your Level Of Caffeine Consumption? Moderate Soda Information not available 05/27/2024 In The 14 Days Before Symptom Onset, Have You Had Close Contact With A Laboratory-confir med COVID-19 While That Case Was Ill? No Information not available 02/26/2024 In The 14 Days Before Symptom Onset, Have You Had Close Contact With A Person Who Is Under Investigation For COVID-19 While That Person Was Ill? No Information not available 02/26/2024 Have You Been To An Area Known To Be High Risk For COVID-19? No Information not available 02/26/2024 Are You Currently Employed? No Information not available 02/26/2024 Are You Deaf Or Do You Have Serious Difficulty Hearing? No Information not available 02/26/2024 What Type Of Diet Are You Following? REGULAR [email or web address] Information not available 05/19/2014 What Is The Highest Grade Or Level Of School You Have Completed Or The Highest Degree You Have Received? [id number] Information not available 02/26/2024 Are There Any Guns Present In Your Home? No Information not available 02/26/2024 What Was The Date Of Your Most Recent Tobacco Screening? 07/09/2024 Information not available 07/09/2024 What Is Your Relationship Status? Single Information not available 02/26/2024 Do You Use Your Seat Belt Or Car Seat Routinely? Yes Information not available 02/26/2024 Do You Have Smoke And Carbon Monoxide Detectors In Your Home? Yes Information not available 02/26/2024 How Much Tobacco Do You Smoke? No [email or web address] Information not available 05/19/2014 General Stress Level Medium Information not available 05/19/2014 Do You Feel Stressed (tense, Restless, Nervous, Or Anxious, Or Unable To Sleep At Night)? [id number] Information not available 02/26/2024 Do You Use Any Illicit Or Recreational Drugs? No Information not available 02/26/2024 Do You Use Sunscreen Routinely? No When Needed Information not available 02/26/2024 Has Tobacco Cessation Counseling Been Provided? No Information not available 02/26/2024 Do You Or Have You Ever Used Any Other Forms Of Tobacco Or Nicotine? No Information not available 02/26/2024 Sex: Female Functional Status Question Answer Note LastModified by Organization D etails LastModified Time Are you able to care for yourself? Yes Information n ot available 02/26/2024 What is your exercise level? None some Information not available 02/26/2024 Mental Status None recorded. Family History Relationship Description Onset Age of this Age Resolved Age Notes LastModified by Organization Details LastModified Time Mother History of depression [email or web address] Not available 04/30 09:45:50 Mother Suspected cervical cancer [email or web address] Not available 2015 09:45:50 Mother Carcinoma of lung [email or web address] Not available 2015 09:45:50 Father History of cerebrovascu lar accident jweichert Not available 09:45:50 Father Essential hypertension [email or web address] Not available 09:45:50 Father Hyperlipidem ia jweichert Not available 2015 09:45:50 Medical History Condition Response Coronary Artery Disease N Other N Atrial Fibrillation N High Blood Pressure Y Breast Cancer N Depression Y COPD N Blood Clots N Lung Disease N Breast Problem N Anesthesia Complications N Headaches/Migraines N Anxiety Disorder Y Muscle, Joint, or Bone Problems Y Arthritis N Infertility N Polyps N Acid Reflux (GERD) Y Cancer N Stroke N Endometriosis N High Cholesterol N Liver Disease N Fibromyalgia N Headaches Y Kidney Disease N Heart Problems N Thyroid Problems N Kidney or Bladder Problems Y GI Problems N Acne N Skin Problems N Eating Disorder N Anemia N Heart Attack (ME) N Ovarian Cancer N Diabetes N Blood Transfusions N Seizures/Epilepsy N Abuse/Domestic Violence N Allergies Y Asthma N Hepatitis N Heart Disease N Pre-Eclampsia N Hypertension N Osteoporosis N Heart Failure N Gynecological History Statement/Question Response Abnormal Pap Y Flow Heavy Date of LMP 05/14/2024 On BCP's at Conception? N STIs/STDs Yes Duration of Flow (days) 3 Current Control Method None Age at First Child 18 Sexually Active? Y Menses Monthly Y Date of Last Pap Smear 06/25/2024 Sexual Problems? Y LMP Approximate Obstetrics History GPAL:G 4 P 3 0 1 3 Type Value Full Term 3 Spontaneous 1 Living 3 Total 4 Immunizations Vaccine Type Date Status Note Provider Nam e and Address Organization Details Recorded Time Tdap 8 completed Not Available [facility] 04/26/2019 02:35:23 Tdap 9 completed Not Available [facility] 04/26/2019 02:37:34 Influenza, split virus, quadrivalent, preservative 5 completed Not Available [facility] 04/26/2019 02:32:11 Past Encounters Encounter ID Performer Location Encounter Start Date Encounter Closed Date Diagnosis/Indication Diagnosis SNOMED-CT Code Diagnosis ICD10 Code Diagnosis Note [id number] Maxine (Adult Med) [address] [place] [address] 05/19/2014 10:49:06 05/19/2014 16:18:08 Pain in lumbar spine 538242410 Unsure cause. Having numbness and tingling of both legs. Encouraged heat/ stretches/ activity as tolerated. Will likely need lumbar MRI, but will evaluate plain film first. NSAIDs prn. [id number] Natalia ANDERSON (Adult Med) [address] [place] [address] 06/12/2014 16:17:52 06/12/2014 17:28:51 Lumbago with sciatica [id number] Patient has order for MRI to re-schedul e herself. Insurance has denied MRI previously and was cause for reschedule . [place] requires patient to have 6 weeks worth of symptoms with 6 weeks worth of muscle relaxer/PT etc. prior to MRI. Patient brought statement in stating such. Continue NSAIDs, heat, stretches, etc. [id number] RAY Lesliehalto (Adult Med) [address] [place] [address] 12/01/2014 11:19:07 12/01/2014 12:16:32 Lumbago with sciatica 057979326 Flexeril prn due to fatigue. Meloxicam seems to be increasing headaches. Encouraged otc NSAIDs prn instead of meloxicam along with heat/ice and referring to PT/OT for eval/treat . Fatigue 80935758 Unsure cause. Will get labs. Work on sleep hygiene, well balanced diet, and active lifestyle. Cholesterol screening 506211762 Endocrine/ metabolic screening 123825803 [id number] [facility] (Adult Med) [address] [place] [address] 12/11/2014 14:19:55 12/11/2014 16:24:07 Backache 090921092 Use Heat/ice, massage, and get cervical and thoracic xray. Try tramadol daily to twice daily prn. #30 no refill. [id number] MD Arabella Palma ([place] [address]) [address] [place] [address] 02/11/2015 10:31:43 02/11/2015 11:11:23 Gynecologic examination 13300512 Z01.419 Pain in pelvis 07038345 R10.2 Irregular periods 573282 07 N92.6 [id number] MD Arabella Palma ([place] [address]) [address] [place] [address] 02/26/2015 10:41:20 02/26/2015 18:15:39 Abnormal vaginal Papanicolaou smear 091580771 R87.629 [id number] Chandrika Goodman (Adult Med) [address] [place] [address] 03/08/2015 10:12:07 03/08/2015 17:57:21 Backache 306658946 M54.5 Use Heat/ice, massage, etc. Referred to PT and pain management . Pain medication request denied today. Patient received tramadol 02/22, percocet 03/02/15 from [facility]. Can use NSAIDs, heat, ice, etc. Encouraged patient to schedule pain management and PT. Reviewed lumbar MRI and xray cervical and lumbar reports with patient. Questions answered. Enocuraged exercise and core strengthen ing. Administra tion of influenza vaccine 71702303 Z23 flu shot today. [id number] MD Arabella Palma ([facility] 122) [address] [place] [place] [address] 03/17/2015 16:50:53 03/17/2015 18:14:43 [id number] Viral Caldwell PA-C [facility] [address] [place] [address] 04/30/2015 09:34:05 04/30/2015 11:17:19 Thoracic back pain 012099061 M54.6 Muscle spa sm of cervical muscle of neck 0818002575 04 M62.344 [id number] FERNANDA Fontaine [facility] [address] [place] [address] 04/19/2016 10:19:16 04/19/2016 12:27:48 Cervical radiculopathy 47636516 M54.12 Thoracic back pain 63033 8004 M54.6 [id number] [facility] [address] [place] [address] 06/12/2016 11:27:14 06/12/2016 12:19:03 Muscle spasm of cervical muscle of neck 8514737194 04 M62.932 [id number] MD Arabella Palma ([facility] 122) [address] [place] [place] [address] 04/11/2017 10:20:25 05/09/2017 16:23:27 test positive 450712106 Z32.01 Normal 7499494 2 Z34.90 [id number] MD Arabella Palma ([facility] 122) [address] [place] [address] 05/09/2017 10:45:50 05/09/2017 15:14:24 Normal 68637564 Z34.91 [id number] MD Arabella Palma ([place] [address]) [address] [place] [place] [address] 06/06/2017 11:10:21 06/07/2017 19:33:[address] [facility] 37029017 G43.90 9 [id number] MD Arabella Palma ([place] [address]) [address] [place] [place] [address] 07/06/2017 15:13:39 07/06/2017 18:06:30 Normal 74486711 Z34.02 Placenta previa 00861060 O44.00 Precaution s were given. [id number] MD Arabella Palma ([place] [address]) [address] [place] [place] [address] 08/03/2017 14:06:40 08/03/2017 14:38:43 Normal 43671611 Z34.02 - CBC, GCT, TDAP to be done during the next visit. Placenta previa 08046811 O44.00 - Patient was instructed to abstain from sexual intercours e. [id number] MD Arabella Palma [address] [place] [address] 08/29/2017 14:22:41 08/30/2017 12:30:27 Normal 63051772 Z34.93 - CBC, GCT was done. labor precaution s were reviewed. Active or passive immunization 303572629 Z23 - TDAP was administer ed. [id number] MD Arabella Palma [address] [place] [address] 09/11/2017 16:15:51 09/11/2017 16:41:47 Normal 81366938 Z34.93 - CBC and GCT were within normal limits. Patient has appointmen t for US for placenta evaluation on 09/24/2017. Patient is aware of labor precaution s. [id number] ASHWINI Trinh 14 OB [address] [place] [address] 09/25/2017 13:48:58 09/27/2017 15:38:10 Normal 34768862 Z34.93 Placenta previa 12430542 O44.00 Most recent OB US showed posterior placenta with a placenta previa again noted. Patient reports occasional light spotting only when wiping after urinating. UA negative except positive for large blood. Blood not visible in urine. Patient denies any dysuria, increased frequency, fever, chills, or odor. Patient denies having to have to wear a pad. Patient denies any back pain, cramping, pressure, or contractio ns. Patient reports good movement. Patient reports spotting started 09/23/17. Notified Dr. Amber Carvalho of this and she recommende d twice a week NST starting this Sunday and if bleeding worsens or PLS occur, patient needs to go to Labor and delivery. Patient verbalized of this understand ing. Patient scheduled for NST this sunday. Patient also referred to [facility] for transfer of care.Patie nt following up with Dr. Ayoub 10/02/17 If unable to get info [facility] per Dr. Ayoub. [id number] MD Arabella Palma [address] [place] [address] [place] [address] 10/04/2017 15:31:38 10/04/2017 22:13:39 Normal 39239655 Z34.93 - - ER and labor precaution s were given. Placenta previa 68569064 O44.00 - Patient was instructed to abstain from sexual intercours e. Will plan for delivery between 36 - 37 weeks gestation. [id number] MD Arabella Palma [address] [place] [address] [place] [address] 10/11/2017 15:19:24 10/11/2017 15:41:43 94856008 Z33.1 labor precaution s were given. Placenta previa 39416017 O44.00 - Patient was instructed to abstain from sexual intercours e. Will plan for delivery on 10/30/2017 [id number] MD Arabella Palma [address] [place] [address] [place] [address] 10/25/2017 14:40:36 10/26/2017 03:10:33 Normal 96074161 Z34.93 - ER and labor precaution s were given. Venereal d isease screening 700812528 Z11.3 [id number] MD Arabella Palma [address] [place] [address] 11/14/2017 14:45:34 11/14/2017 15:06:31 care 347874065 Z39.2 - Patient is doing well. Follow up in 4 weeks for routine check. Postoperative visit 1836 60710 Z09 [id number] RAY Curran [address] [place] [address] [place] [address] 03/06/2018 14:05:36 03/06/2018 18:47:12 Early stage of 529825335 Z34.80 - B-HCG was ordered. Will re-evaluat e with results. [id number] MD Arabella Palma [address] [place] [address] 03/28/2018 14:20:46 03/28/2018 14:52:05 Normal 83703119 Z34.81 - Patient is undecided about the . [id number] Veronika Meghna Bateman [address] [place] [address] 04/11/2018 14:12:21 04/12/2018 12:31:56 Normal 19211055 Z34.81 - labs were ordered. Past pregn james history of section 573701952 Z98.303 [id number] MD Arabella Palma [address] [place] [address] 06/21/2018 11:37:54 2018 08:40:21 Normal 41691429 Z34.81 - labs were reviewed. Gynecologi c examination 11819769 Z01.419 Vaginal discharge 016186 006 N89.8 Headache 32502807 R51 Past pregn james history of section 634396215 Z98.264 [id number] MD Arabella Sommers [address] [place] [address] 07/11/2018 10:42:49 07/12/2018 09:02:55 Routine care 286980871 Z34.92 [id number] DO Arabella Cintron [address] [place] [address] 09/04/2018 11:52:47 09/04/2018 15:54:32 Routine care 539571928 Z34.93 [id number] MD Arabella Stanley [address] [place] [address] 09/19/2018 11:50:50 09/20/2018 09:12:40 Normal 53656494 Z34.83 Past pregn james history of section 945846752 Z98.890 Uterine si ze for dates discrepancy 049689932 O26.189 [id number] MD Arabella Stanley [address] [place] [address] 10/03/2018 11:45:45 10/03/2018 15:27:10 Normal 68860748 Z34.83 Past pregn james history of section 953570586 Z98.219 [id number] MD Arabella Stanley [address] [place] [address] 10/17/2018 11:24:01 10/18/2018 09:09:49 Normal 89826771 Z34.83 [id number] MD Arabella Stanley [address] [place] [address] 10/22/2018 15:46:21 10/23/2018 10:23:32 Normal 32238421 Z34.83 Past pregn james history of section 805949541 Z98.263 [id number] MD Arabella Stanley [address] [place] [address] 10/29/2018 15:12:23 10/30/2018 09:59:56 Normal 30221987 Z34.83 Past pregn james history of section 724906850 Z98.508 [id number] MD Arabella Stanley [address] [place] [address] 11/21/2018 11:43:01 11/22/2018 15:09:33 Removal of dwayne 66083307 Z48.02 depression 58 393920 F53.0 Contracept ion care management 439688505 Z30.9 [id number] MD Arabella Stanley [address] [place] [address] 05/19/2019 14:05:33 05/20/2019 10:28:09 depression 24354267 F53.0 Essential hypertension 27003592 I10 [id number] MD Tigist Pereirahalto (Adult Med) [address] [place] [address] 02/26/2024 09:52:13 02/29/2024 11:43:19 Mixed anxiety and depressive disorder 279133069 F41.8 with multiple complaints -pt to start fluoxetine with buspar Essential hypertension 57164890 I10 -bp is elevated partially due to anxiety-pt was on med in the past during /not taking any meds at present timept does not have plan to get , but not using any contracept ion- will try verapamil which may help with headache- will reassess in 2 wkspt to go to ER if chest pain or sob Obesity 338167599 E66.9 [id number] MD Tigist Pereirahalto (Adult Med) [address] [place] [address] 04/21/2024 11:55:25 04/25/2024 13:04:50 Mixed anxiety and depressive disorder 699680181 F41.8 -pt to continue fluoxetine pt to increase buspar tidpt to see therapist Essential hypertension 57592713 I10 improving- bp is elevated partially due to anxiety-pt was on med in the past during - pt to continue verapamil which may help with headache- will reassess with next f/upt to go to ER if chest pain or sob [id number] ASHLEY ORTEGA- Maxine (Adult Med) [address] [place] [address] 05/27/2024 09:58:07 05/28/2024 10:39:18 Mixed anxiety and depressive disorder 323337468 F41.8 -Patient reports she has only had one panic attack in 30 days.-Repo rts the increased buspirone has helped.-De nies active suicidal or homicidal thoughts. Denies history of suicidal or homicidal thoughts.- Advised counseling , psychologi st referral placed-Pat ient was educated on her prescribed medication s, rationale for medication s, dosing indication s, adverse reactions, black box warning, dosing indication s, SE (e.g., decreased libido, weight gain, gynecomast ia, and galactorrh ea) and the risks and benefits.- Patient instructed to go to ER or call 911 or 988 for crisis (e.g., suicidal behaviors, suicidal ideations, intent or plan emerge). Additional ly, patient has suicide hotline #.-Feliciano nue therapy: buspirone 10mg TID, fluoxetine 20mg daily-f/u in 3 months-Adv ised patient to call clinic with questions Venereal d isease screening 506878091 Z11.3 -Patient agreeable to hepatitis C screening. Patient refused any other STD screening. Screening mammography 763405 Z12.31 -Patient agreeable to screening mammogram Essential hypertension 16571472 I10 -Uncontrol led-BP today in clinic: 148/84mmHg (Goal <130/80)-H ome BP readings: 140's/80's -Current therapy: Verapamil ER 180mg daily-Naida l function:C reatinine 0.64 (02/26/24) GFR 115 (02/26/24) -Denies chest pain, shortness of breath, headaches, blurred vision, or heart palpitatio ns-Increas e current therapy: verapamil ER 240mg daily-OVEN DUMPER discussed with cardiologi st Dr. Nayak with patient's symptoms of chest pain/palpi tations. Dr. Nayak in agreement with increasing verapamil and holding off on propranolo l therapy.-T rend renal function-R ecommended DASH diet-Discu ssed importance of regular exercise and/or physical activity inthe control of blood pressure.- Discussed low sodium diet w/ <2 g daily, avoidance of caffeine, appropriat e sleep hygiene and quality with >6 hours of uninterrup lucy sleep.-Pat tegan to call with BP <110/70mmH g or >140/90mmH g-F/u in 1-2 months for BP recheck Migraine 97861591 G43.90 9 -Patient reports headaches have improved, she reports having headaches every other day now instead of daily. Reports occasional vision changes with migraines. -Patient reports consistent headache to posterior scalp.-Pre viously on fiorcet therapy-In crease verapamil therapy-Co nsider head CT and neurologis t referral if symptoms do not improve-ER precaution s advised Screening for malignant neoplasm of cervix 087793050 Z12.4 -Patient agreeable to endoscopy nurse referral for pap smear Chest pain 41838377 R07. 9 -Patient reports experienci ng sharp chest pain 2x per month.-Pat ient reports episodes of palpitatio ns for 15 min at a time. Patient reports symptoms resolve spontaneou sly.-Denie s arm numbness/t ingling-Marck kam agreeable cardiologi st referral-E R precaution s advised [id number] Albin Nayak MD [facility] [facility] [place] [facility] [address] [place] [address] 05/29/2024 11:36:31 06/02/2024 12:15:11 Chest pain 34423410 R07.9 R06.00 I10 E78.2 Z82.49 R00.2 Obesity 122274141 E66.9 [id number] Dao Cordova MD [place] 14 OB [address] [facility] [place] [address] 06/25/2024 10:13:44 06/27/2024 16:42:01 Positive screening for depression on PHQ-9 (Patient Health Questionnaire 9) 2266442106 37268 Z13.31 Gynecologi c examination 07866872 Z01.419 Screening for malignant neoplasm of breast 555700718 Z12.39 Dysmenorrhea 133271555 N 94.6 [id number] Albin Nayak MD [facility] [facility] [place] [facility] [address] [place] [address] 06/27/2024 10:02:08 07/07/2024 12:43:20 Precordial pain 21357361 R07.2 Obtain treadmill stress test for ischemic risk stratifica tion and assess for chronotrop ic incompeten ce. Red flag symptoms to seek sooner medical attention discussed at length. Snoring 32885463 R06.83 R53.83 Refer to Sleep Medicine at [facility] per patient request given high pretest probabilit y for MARIAM given Mobitz 2 av block, sinus pause, snoring, obesity and daytime somnolence . Essential hypertension 98697497 I10 Encouraged low-sodium diet and ambulatory blood pressure monitoring . Deescalate verapamil as outlined. Initiate losartan 25 mg daily. Check follow-up labs including CBC, CMP, thyroid studies and lipid panel along with HGB A1c. Follow-up 2 months and p.r.n. Obesity 903736027 E66.9 Palpitations 66305429 R0 0.2 Deescalate verapamil from 240 to 120 mg daily. Based on AV block we will consider discontinu ing in the future. Denies symptoms related to AV block and specifical ly denies presyncope or syncope. Health Concerns Section Related Observation LastModified by Organization Detai ls LastModified Time None Recorded Concern Status LastModified by Organization Details LastModified Time None Recorded Advance Directives Directive None Recorded Payers Encounter Date Sequence Insurance Name Policy Number Policy Weiner Covered Member ID Weiner Member ID Guarantor Name 05/27/2024 1 [facility] ON OR AFTER 10/07/20 (MEDICAID REPLACEMENT - HMO) Kathy Carmona [id number] Kathy Carmona 05/29/2024 1 [facility] ON OR AFTER 10/07/20 (MEDICAID REPLACEMENT - HMO) Kathy Carmona [id number] Kathy Carmona 06/25/2024 1 [facility] ON OR AFTER 10/07/20 (MEDICAID REPLACEMENT - HMO) Kathy Carmona [id number] Kathy Carmona 06/27/2024 1 [facility] ON OR AFTER 10/07/20 (MEDICAID REPLACEMENT - HMO) Kathy Carmona [id number] Kathy Carmona Notes Date Note Type Note Provider Name and Address Organization Details Recorded Time 05/27/2024 text/html Patient presents to the clinic to establish care. Patient was previously established with Dr. Melo for primary care.Other Providers:endoscopy nurse-Dr. Posada-NP -Medical Hx/Surgical Hx: anxiety, depression, migraines, vitamin d deficiency, 4 pregnancies-1 miscarriage-3 -3 living children, back pain, GERD, hypertension, and diverticulitis. -Family hx:Mother: -cancerFather : -old ageMaternal Grandmother: unknownMaternal Grandfather: unknownPaternal Grandmother: unknownPaternal Grandfather: unknown -Tobacco/Drug/Alcohol Use:Patient denies history of tobacco or drug use.Patient reports alcohol use 1-2 times per month. Chicken pox: Patient reports history of chicken pox. Marital status: single Sexually active: no Occupation: unemployed Highest level of education: high school diplomaOther habits:Exercise-Patie nt reports she plays with her children for exercise.Diet-Patient reports eating vegetables, fruits, and proteins. She avoids eating junk food. Patient reports drinking water mainly and an occasional soda. Allergies: NKDA TRINA ORTEGA Attn: Accounting[address] [place], [address], [facility] - [facility] 05/28/2024 10:06:03 05/29/2024 text/html I had the pleasu re of seeing this patient as a new consultation from Tatiana Avila DNP for recommendations regarding evaluation and management of cardiac etiologies of chest pain and dyspnea. Very pleasant 38-year-old with cardiac risk factors of hypertension, borderline hyperlipidemia treated through diet/exercise, family history of CAD in 50s in her father, overweight status noticing episodes of increasing dyspnea and palpitations. Reports NYHA class 2 functional status but still able to take care of 2 young children who are ages 5 and 6. Chest pain is substernal, sharp, occasionally brought on by exertion with no definite triggers. Noticing increasing episodes of palpitations with no presyncope or syncope. Denies recent COVID, DVT, bleeding diathesis. Diagnostics:Twelve lead EKG 05/29/2024, sinus rhythm, RSR pattern Labs:02/26/2024:TSH 1.89, HGB A1c 5.5, HGB 13.7, WBC 7.0, platelets 398, BUN 14, creatinine 0.64, sodium 137, potassium 4.3, chloride 100, CO2 22, AST 20, ALT 18, albumin 4.6, total cholesterol 218, TG 284, HDL 45, LDL 123 Albin Nayak MD Attn: Accounting[address] [place], [address], [facility] 05/29/2024 16:57:58 06/25/2024 text/html Annual GYNReport ed bypatient.Menstrual cycle:Severe dysmenorrhea;Menorrha anoop Urinary symptoms:No hematuria; No incontinence Vulva:No genital lesion Vagina:Normal vaginal discharge Breast:No breast pain; No breast lump; No nipple discharge Sexual complaints:No sexual complaints; No pain during intercourse; Normal libido Menopausal Symptoms:No menopausal symptoms; Normal vaginal lubrication Psychological symptoms:No depression; No anxiety; No PMDD Not seen in 5 years at time of last PP visit after third c/s periods are heavy and painful no medical issues since seen last Dao Cordova MD Attn: Accounting[address] [place], [address], [facility] 06/25/2024 10:52:49 06/27/2024 text/html 39-year-old with hypertension, mixed hyperlipidemia, family history of CAD and obesity presents for follow-up of palpitations. Still with occasional palpitations. Noticing substernal chest pain off and on which is nonexertional, short lived with dyspnea. Reports snoring with daytime somnolence and exertional fatigue. Diagnostics:Twelve lead EKG 05/29/2024, sinus rhythm, RSR pattern Transthoracic echocardiogram 06/17/2024: LVEF 60-65%, grade 1 diastolic dysfunction, normal myocardial strain, trace tricuspid regurgitation, normal IVC 14 day Holter monitor, 2024: PVC burden 1%, no significant PACs, transient episodes of Mobitz 2 av block noted with total duration 0.12%, longest RR interval 2.3 seconds Labs:02/26/2024:TSH 1.89, HGB A1c 5.5, HGB 13.7, WBC 7.0, platelets 398, BUN 14, creatinine 0.64, sodium 137, potassium 4.3, chloride 100, CO2 22, AST 20, ALT 18, albumin 4.6, total cholesterol 218, TG 284, HDL 45, LDL 123 Albin Nayak MD Attn: Accounting[address] [place], [address], [facility] 06/27/2024 15:35:47 OBGyn Episode Ob Episode Information Episode Created Date Number of Fetuses Patient Bloodtype Patient rh Status Prepregnancy Weight lbs Domestic Partner Domestic Partner Phone Father Name Fleet Director Status 04/24/19 19 1 O Positive CLOSED Fetus Data First Name Last Name Admitted to NICU Weight (g) Sex Living Outcome Pediatric Complications Fetus ID Race Codes Race Delivery Type Yoselyn zaman false 2721.55 2 F true Full Term [address]15 2106-3 White Problems Problem Notes 33 YO [id number] X2 - VERT ICAL SKIN INCISIONLOW BACK PAINMJ USE barbiturats, phenobarbital, cannabinoid Problem Name Start Date End Date Resolution Snomed Code Not e Deliveries by 04 x2, vertical skin incision Past history of placenta previa [id number] 2nd pregn james Vitamin D deficiency [id number] 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 hx rx Fioricet Phenobarbitone level - finding [id number] Cannabis abuse [id number] Sebas Calculation Initial Sebas Date Initial Exam Date Initial Exam Provider Initial Ultrasound Date Last Menstrual Period Date Ultra Sound Weeks Gestation 11/10/2018 04/24/2018 [email or web address] 04/18/2018 02/01/2018 10 Eighteen To Twenty Week Sebas Update Ultra Sound Date Fundal Height At Umbil Quickening Date Ultra Sound Latest Weeks Gestation Final Sebas Confirmed By Final Sebas Confirmed Date Final Sebas Date Ultra Sound Latest Days Gestation 0 [email or web address] 07/11/2018 11/09/19 19 0 Pre- Flowsheet Flowsheet Date 06/21/2018 Red Score Blood Edema Fundus Height Fundus Units Glucose Ketones Leukocytes Nitrite Labor Signs Protein Cervic Dilation Cervic Effacement Cervic Station neg negative neg Type Weight in lbs Pre/Post Dialysis Refused Weight 161.204958872487 BP Diastolic BP Location Tested BP Systolic BP Type 72 130 sitting Fetus Heart Rate Present A Present Fetus Movement Comments Patient has been non complia nt with visits. Patient c/o headaches. Patient does have a history of migraines. Rx for Fiorecet was sent to the pharmacy. Patient reports that she had some weakness on the left arm. No gross neurological deficit was noted today. Quad screen and anatomy scan was ordered. Follow up with Dr. Corbin in 4 weeks. Flowsheet Date 07/11/2018 Red Score Blood Edema Fundus Height Fundus Units Glucose Ketones Leukocytes Nitrite Labor Signs Protein Cervic Dilation Cervic Effacement Cervic Station trace none none small none 1+ Type Weight in lbs Pre/Post Dialysis Refused With clothes 162.487893976327 BP Diastolic BP Location Tested BP Systolic BP Type 76 134 sitting Fetus Heart Rate Present A 150's Present Fetus Movement A Yes Comments Patient denies any complaint s. labor precautions given. RTC in 4 weeks. Flowsheet Date 09/04/2018 Red Score Blood Edema Fundus Height Fundus Units Glucose Ketones Leukocytes Nitrite Labor Signs Protein Cervic Dilation Cervic Effacement Cervic Station trace trace 30 none negative Backpain neg Type Weight in lbs Pre/Post Dialysis Refused Weight 166.548951558399 BP Diastolic BP Location Tested BP Systolic BP Type 74 126 sitting Fetus Heart Rate Present A 150 Fetus Movement A Yes Comments no bleeding or cramping. fet us is active. reports low back pain - has seen chiropractor with some improvement. advise tylenol, avoid ibuprofen. will follow up with other OB provider to schedule repeat delivery. prior UDS with barbiturates - has prior prescription for Fioricet - has not taken recently. denies recent MJ use. TDAP given today. labs today - glucose and cbc. REYNOLDS Flowsheet Date 09/19/2018 Red Score Blood Edema Fundus Height Fundus Units Glucose Ketones Leukocytes Nitrite Labor Signs Protein Cervic Dilation Cervic Effacement Cervic Station none 28 cm Type Weight in lbs Pre/Post Dialysis Refused BP Diastolic BP Location Tested BP Systolic BP Type Fetus Heart Rate Present A 143 Present Fetus Movement A Yes Comments First : 10'12 boy delivered by Herzon c/s after failed inductionSecond ; 7'1 boy delivered at 37 weeks, repeat by Anitra (previa)Some uterus growth lag - will check growth US.discusses low transverse on skin instead of vertical Flowsheet Date 10/03/2018 Red Score Blood Edema Fundus Height Fundus Units Glucose Ketones Leukocytes Nitrite Labor Signs Protein Cervic Dilation Cervic Effacement Cervic Station none 31 cm Type Weight in lbs Pre/Post Dialysis Refused With clothes 165.01555570255 BP Diastolic BP Location Tested BP Systolic BP Type 76 112 sitting Fetus Heart Rate Present A 151 Absent Fetus Movement A Yes Comments f/u US was reassuringgood fm vmntplan repeat c/s at 39 weeks Flowsheet Date 10/17/2018 Red Score Blood Edema Fundus Height Fundus Units Glucose Ketones Leukocytes Nitrite Labor Signs Protein Cervic Dilation Cervic Effacement Cervic Station none 33 cm none trace Type Weight in lbs Pre/Post Dialysis Refused With clothes 161.70153547690 BP Diastolic BP Location Tested BP Systolic BP Type 92 136 sitting Fetus Heart Rate Present A 141 Present Fetus Movement A Yes Comments doing well, no new issues.la bor precautions Flowsheet Date 10/22/2018 Red Score Blood Edema Fundus Height Fundus Units Glucose Ketones Leukocytes Nitrite Labor Signs Protein Cervic Dilation Cervic Effacement Cervic Station none 34 cm Type Weight in lbs Pre/Post Dialysis Refused With clothes 164.02121764217 BP Diastolic BP Location Tested BP Systolic BP Type 96 122 sitting Fetus Heart Rate Present A 138 Present Fetus Movement A Yes Comments doing well, 10 days til repe at c/slabor precautions Flowsheet Date 10/29/2018 Red Score Blood Edema Fundus Height Fundus Units Glucose Ketones Leukocytes Nitrite Labor Signs Protein Cervic Dilation Cervic Effacement Cervic Station none 35 cm Type Weight in lbs Pre/Post Dialysis Refused With clothes 164.23273788022 BP Diastolic BP Location Tested BP Systolic BP Type 84 122 sitting Fetus Heart Rate Present A 145 Present Fetus Movement A Yes Comments doing well, repeat c/s is sundayno BTL... not completely sure Flowsheet Date 11/21/2018 Red Score Blood Edema Fundus Height Fundus Units Glucose Ketones Leukocytes Nitrite Labor Signs Protein Cervic Dilation Cervic Effacement Cervic Station Type Weight in lbs Pre/Post Dialysis Refused With clothes 148.066108595665 BP Diastolic BP Location Tested BP Systolic BP Type 102 R arm 136 sitting Fetus Heart Rate Present Fetus Movement Comments Menstrual History Last Menstrual Date Menses Monthly On Bcp Conception Prior Menses Frequency Hcg Plus Date Menarche Onset Age 1002/01/2018 Genetic Screening And Infection History Question Response Note Patient's Age Will Be 35 Yea rs Or Older At Estimated Date of Delivery false Thalassemia ([place] Citizen, Ethiopian, Mediterranean, Or Background): MCV < 80 false Neural Tube Defect (Meningom yelocele, Spina Bifida, Or Anencephaly) false Congenital Heart Defect false Down Syndrome false Kole-Sachs (eg, Islam, Cajun, Lao-Bethlehem) f alse Janna Disease false Sickle Cell Disease Or Trait () false Hemophilia Or Other Blood Disorders false Muscular Dystrophy false Cystic Fibrosis false Denver's Chorea false Mental Retardation/Autism false If Yes, Was Person Tested For Fragile X? false Other Inherited Genetic Or Chromosomal Disorder false Maternal Metabolic Disorder (eg, Type 1 Diabetes , PKU) false Patient Or Baby's Father Had A Child With Defects Not Listed Above false Recurrent Loss, Or A Stillbirth false Medications (including Suppl ements, Vitamins, Herbs, OTC Drugs), Illicit/Recreational Drugs, Alcohol true pnv, s ubstance abuse If Yes, Agent(s) And Strength/Dosage false Any Other Genetic History false Live With Someone With TB Or Exposed To TB false Patient Or Partner Has History Of Genital Herpes false Rash Or Viral Illness Since Last Menstrual Perio d false History Of STD, Gonorrhea, Chlamydia, HPV, Syphi lis true HX TRICH mob Other Infection History false History of HIV false History of Hepatitis false Prior GBS-infected child false Delivery Information Delivery Date Delivery Type Labor Anesthesia Weeks Gestation Incision Type Labor Labor Length Hrs Delivered By Post Complications Tubal Sterilization Discharge Date Comments [facility] Low Transvers e [place] 11/14/2018 Discharge Information Feeding Method Contraceptive Method Maternal HG B and HCT Levels Bottle Ob Episode Information Episode Created Date Number of Fetuses Patient Bloodtype Patient rh Status Prepregnancy Weight lbs Domestic Partner Domestic Partner Phone Father Name Fleet Director Status 05/19/19 20 1 CLOSED Fetus Data First Name Last Name Admitted to NICU Weight (g) Sex Living Outcome Pediatric Complications Fetus ID Race Codes Race Delivery Type [id number] Sebas Calculation Initial Sebas Date Initial Exam Date Initial Exam Provider Initial Ultrasound Date Last Menstrual Period Date Ultra Sound Weeks Gestation 0 Eighteen To Twenty Week Sebas Update Ultra Sound Date Fundal Height At Umbil Quickening Date Ultra Sound Latest Weeks Gestation Final Sebas Confirmed By Final Sebas Confirmed Date Final Sebas Date Ultra Sound Latest Days Gestation 0 0 Menstrual History Last Menstrual Date Menses Monthly On Bcp Conception Prior Menses Frequency Hcg Plus Date Menarche Onset Age Delivery Information Delivery Date Delivery Type Labor Anesthesia Weeks Gestation Incision Type Labor Labor Length Hrs Delivered By Post Complications Tubal Sterilization Discharge Date Comments 4 40 Discharge Information Feeding Method Contraceptive Method Maternal HG B and HCT Levels Ob Episode Information Episode Created Date Number of Fetuses Patient Bloodtype Patient rh Status Prepregnancy Weight lbs Domestic Partner Domestic Partner Phone Father Name Fleet Director Status 04/11/19 18 1 O Positive Tano Hannah CLOSED Fetus Data First Name Last Name Admitted to NICU Weight (g) Sex Living Outcome Pediatric Complications Fetus ID Race Codes Race Delivery Type Dar Ceron 3203.49 34 M true Full Term [id number] [id number] White Sebas Calculation Initial Sebas Date Initial Exam Date Initial Exam Provider Initial Ultrasound Date Last Menstrual Period Date Ultra Sound Weeks Gestation 11/20/2017 04/11/2017 [email or web address] 02/13/2017 0 Eighteen To Twenty Week Sebas Update Ultra Sound Date Fundal Height At Umbil Quickening Date Ultra Sound Latest Weeks Gestation Final Sebas Confirmed By Final Sebas Confirmed Date Final Sebas Date Ultra Sound Latest Days Gestation 06/22/19 18 18 [email or web address] 07/02/2017 11/21/19 18 2 Pre-armando Flowsheet Flowsheet Date 04/11/2017 Red Score Blood Edema Fundus Height Fundus Units Glucose Ketones Leukocytes Nitrite Labor Signs Protein Cervic Dilation Cervic Effacement Cervic Station Type Weight in lbs Pre/Post Dialysis Refused 147.546450172591 BP Diastolic BP Location Tested BP Systolic BP Type 72 116 sitting Fetus Heart Rate Present Fetus Movement Comments Patient is a 31 yo a t 8weeks and 1 day by LMP 02/13/2017. Patient is here to establish care. Patient reports nausea.POB: Previous CS x 1, b. wt 10lbs PGYN: history of trichomonas PMH: deniesPSH: previous CS x 1 Allergies: Penicilin Medication: PNVSocial: denies substance abuseFamily: unremarkable Flowsheet Date 05/09/2017 Red Score Blood Edema Fundus Height Fundus Units Glucose Ketones Leukocytes Nitrite Labor Signs Protein Cervic Dilation Cervic Effacement Cervic Station trace none negative neg Type Weight in lbs Pre/Post Dialysis Refused 148.668035940065 BP Diastolic BP Location Tested BP Systolic BP Type 64 110 sitting Fetus Heart Rate Present A Present Fetus Movement Comments Patient offers no complaints . Patient has picked up metrogel for BV. Cardiac activity was demonstrated by bedside US. Quad careen to be done during the next visit. Flowsheet Date 06/06/2017 Red Score Blood Edema Fundus Height Fundus Units Glucose Ketones Leukocytes Nitrite Labor Signs Protein Cervic Dilation Cervic Effacement Cervic Station neg none moderate 1+ Type Weight in lbs Pre/Post Dialysis Refused 153.782339706217 BP Diastolic BP Location Tested BP Systolic BP Type 62 122 sitting Fetus Heart Rate Present A 150 Fetus Movement Comments Patient c/o headaches. Emelia perera endorses a history of tension headaches and migraines prior to the . Rx for Fiorecet was sent to the pharmacy. Anatomy scan was ordered. Quad screen was done. Flowsheet Date 07/06/2017 Red Score Blood Edema Fundus Height Fundus Units Glucose Ketones Leukocytes Nitrite Labor Signs Protein Cervic Dilation Cervic Effacement Cervic Station none negative neg Type Weight in lbs Pre/Post Dialysis Refused 154.748690048849 BP Diastolic BP Location Tested BP Systolic BP Type 60 112 Fetus Heart Rate Present A 147 Fetus Movement A Yes Comments Pelvic US suggests placenta previa. Patient denies any history if bleeding. Anatomy scan did not show any abnormalities. Quad screen was normal. Will repeat OB US prior to next visit. Patient reports improvement in her migraines. Flowsheet Date 08/03/2017 Red Score Blood Edema Fundus Height Fundus Units Glucose Ketones Leukocytes Nitrite Labor Signs Protein Cervic Dilation Cervic Effacement Cervic Station neg 27 none trace trace Type Weight in lbs Pre/Post Dialysis Refused 157.139207433467 BP Diastolic BP Location Tested BP Systolic BP Type 72 114 sitting Fetus Heart Rate Present A 144 Fetus Movement A Yes Comments Patient offers no complaints . Will order OB US for evaluation of placenta previa . Patient was instructed to abstain from sexual intercourse. CBC, GCT, TDAP to be done during the next visit. Flowsheet Date 08/29/2017 Red Score Blood Edema Fundus Height Fundus Units Glucose Ketones Leukocytes Nitrite Labor Signs Protein Cervic Dilation Cervic Effacement Cervic Station neg 31 none negative neg Type Weight in lbs Pre/Post Dialysis Refused 162.782158513102 BP Diastolic BP Location Tested BP Systolic BP Type 72 116 sitting Fetus Heart Rate Present A 147 Fetus Movement A Yes Comments Patient offers no complaints . CBC, GCT and TDAP was ordered. Patient is yet to do follow up US for placenta previa. labor precautions were reviewed. Flowsheet Date 09/11/2017 Red Score Blood Edema Fundus Height Fundus Units Glucose Ketones Leukocytes Nitrite Labor Signs Protein Cervic Dilation Cervic Effacement Cervic Station neg 32 none negative neg Type Weight in lbs Pre/Post Dialysis Refused 163.221208430461 BP Diastolic BP Location Tested BP Systolic BP Type 64 120 Fetus Heart Rate Present A 150 Fetus Movement A Yes Comments Patient offers no complaints . CBC and GCT were within normal limits. Patient is yet to do US for placenta evaluation. Patient is aware of labor precautions. Flowsheet Date 09/25/2017 Red Score Blood Edema Fundus Height Fundus Units Glucose Ketones Leukocytes Nitrite Labor Signs Protein Cervic Dilation Cervic Effacement Cervic Station none 32 cm none negative Other (see comments ) neg Type Weight in lbs Pre/Post Dialysis Refused 167.919857875004 BP Diastolic BP Location Tested BP Systolic BP Type 74 120 sitting Fetus Heart Rate Present A 136 Fetus Movement A Yes Comments Most recent OB US showed pos terior placenta with a placenta previa again noted. Patient reports occasional light spotting only when wiping after urinating. UA negative except showed large blood. No visible blood in urine. Patient denies any dysuria, increased frequency, fever, chills, or odor. Patient denies having to have to wear a pad. Patient denies any back pain, cramping, pressure, or contractions. Patient reports good movement. Patient reports spotting started 09/23/17. Notified Dr. Amber Carvalho of this and she recommended twice a week NST starting this Sunday and if bleeding worsens or PLS occur, patient needs to go to Labor and delivery. Patient verbalized of this understanding. Patient scheduled for NST this sunday. Patient also referred to [facility] for transfer of care. Patient following up with Dr. Ayoub 10/02/17 If unable to get info MFM per Dr. Ayoub. Flowsheet Date 10/04/2017 Red Score Blood Edema Fundus Height Fundus Units Glucose Ketones Leukocytes Nitrite Labor Signs Protein Cervic Dilation Cervic Effacement Cervic Station neg 35 none negative neg Type Weight in lbs Pre/Post Dialysis Refused 169.282263261019 BP Diastolic BP Location Tested BP Systolic BP Type 58 106 sitting Fetus Heart Rate Present A 129 Fetus Movement A Yes Comments Patient offers no complaints today. Patient is s/p MFM consult for placenta previa. Patient states that she is no having vaginal spotting. As per [facility] recommendations, patient will be delivered by section between 36 and 37 weeks. Patient was reminded to abstain from sexual intercourse. ER and labor precautions were given. Flowsheet Date 10/11/2017 Red Score Blood Edema Fundus Height Fundus Units Glucose Ketones Leukocytes Nitrite Labor Signs Protein Cervic Dilation Cervic Effacement Cervic Station neg 31 trace 1+ Type Weight in lbs Pre/Post Dialysis Refused 166.432156643220 BP Diastolic BP Location Tested BP Systolic BP Type 74 118 Fetus Heart Rate Present A 144 Fetus Movement A Yes Comments Patient offers no complaints . Will schedule for repeat section 10/30/2017 for placenta previa. labor precautions were given. Flowsheet Date 10/25/2017 Red Score Blood Edema Fundus Height Fundus Units Glucose Ketones Leukocytes Nitrite Labor Signs Protein Cervic Dilation Cervic Effacement Cervic Station neg none 37 none negative neg Type Weight in lbs Pre/Post Dialysis Refused 169.305940498993 BP Diastolic BP Location Tested BP Systolic BP Type 62 120 sitting Fetus Heart Rate Present A 140 Fetus Movement A Yes Comments Patient offers no complaints . Patient is scheduled for a repeat section for placenta previa on 10/30/2017. labor precautions were reviewed. GBS culture was sent. Menstrual History Last Menstrual Date Menses Monthly On Bcp Conception Prior Menses Frequency Hcg Plus Date Menarche Onset Age 1102/13/2017 true 12 Genetic Screening And Infection History Question Response Note Patient's Age Will Be 35 Yea rs Or Older At Estimated Date of Delivery false Thalassemia ([place] Citizen, Ethiopian, Mediterranean, Or Background): MCV < 80 false Neural Tube Defect (Meningom yelocele, Spina Bifida, Or Anencephaly) false Congenital Heart Defect false Down Syndrome false Kole-Sachs (eg, Islam, Cajun , Lao-Bethle[place]) false Janna Disease false Sickle Cell Disease Or Trait () false Hemophilia Or Other Blood Disorders false Muscular Dystrophy false Cystic Fibrosis false [place]'s Chorea false Mental Retardation/Autism false If Yes, Was Person Tested For Fragile X? false Other Inherited Genetic Or C hromosomal Disorder false Maternal Metabolic Disorder (eg, Type 1 Diabetes, PKU) false Patient Or Baby's Father Had A Child With Defects Not Listed Above false Recurrent Loss, Or A Stillbirth false Medications (including Suppl ements, Vitamins, Herbs, OTC Drugs), Illicit/Recreational Drugs, Alcohol false If Yes, Agent(s) And Strength/Dosage false Any Other Genetic History false Live With Someone With TB Or Exposed To TB false Patient Or Partner Has Histo ry Of Genital Herpes false Rash Or Viral Illness Since Last Menstrual Period false History Of STD, Gonorrhea, C hlamydia, HPV, Syphilis false Other Infection History true MOB has had Trich in the past. Delivery Information Delivery Date Delivery Type Labor Anesthesia Weeks Gestation Incision Type Labor Labor Length Hrs Delivered By Post Complications Tubal Sterilization Discharge Date Comments 8 [facility] [address] Low Transvers e false Dr. Anitra rodrigues 11/01/2017 Discharge Information Feeding Method Contraceptive Method Maternal HG B and HCT Levels Bottle
--- OUTSIDE RECORDS SUMMARY | 2024-07-15 00:48 | XMS_ITS | Clinical Summary ---
Author Organization [facility] Address [address] [place] [address] Phone Care Team Providers Care Facer Operator Name Role Phone Tatiana Avila APRN, ICE GRINDER Primary Care Provider Allergies No known active allergies Medications metoclopramide (REGLAN) 10 MG Tablet Take 1 Tablet by mouth 4 times daily as needed for Nausea - 2nd line. 10 Tablet 03/15/2022 Active famotidine (PEPCID) 20 MG Tablet Take 1 Tablet by mouth 2 times daily as needed for Heartburn. 30 Tablet 03/15/2022 Active ondansetron (ZOFRAN-ODT) 4 MG TABLET DISPERSIBLE Take 1 Tablet by mouth every 8 hours as needed for Nausea - 1st line. 10 Tablet 04/30/2023 Active dicyclomine (BENTYL) 20 MG Tablet Take 1 Tablet by mouth every 6 hours. 30 Tablet 04/30/2023 Active metroNIDAZOLE (Flagyl) 500 MG Tablet Take 1 Tablet by mouth 3 times daily. 30 Tablet 04/30/2023 Active FLUoxetine (PROzac) 20 MG Capsule Take 20 mg by mouth daily. Active busPIRone (BUSPAR) 10 MG Tablet Take 10 mg by mouth 3 times daily. Active Active Problems Problem Noted Date Diagnosed Date GREYSON (generalized anxiety disorder) 07/08/2024 MDD (major depressive disord er), recurrent episode, moderate 07/08/2024 Encounters Date Type Department Care Team Description 07/09/2024 Travel 07/08/2024 12:45 PM CDT Outpatient Clinic [facility] [address] [place] [phone] Sujey Francisco, GROUP MANAGING DIRECTOR GREYSON (generalized anxiety disorder) (Primary Dx); MDD (major depressive disorder), recurrent episode, moderate (HCC) Discharge Disposition: Discharged to home or Selfcare 07/08/2024 Travel 06/25/2024 Transcribe Orders [facility] Central Scheduling [address] [place] [id number] Tatiana Avila, MI[employer]OS[employer]FT SYSTEMS ENGINEER, ICE GRINDER Encounter for screening mammogram for malignant neoplasm of breast (Primary Dx) from Last 3 Months Family History Medical History Relation Name Comments No Known Problems Brother 1 (50) No Known Problems Brother 2 (39) Dementia Father Heart Disease Father from [place] at 82 yo Cancer Mother at 59 yo - about 10 years ago Chronic Obstructive Pulmonary Disease Mother Depression Mother No Known Problems Sister (45) Relation Name Status Comments Brother 1 (50) Alive Brother 2 (39) Alive Father Mother Sister (45) Alive Social History Tobacco Use Types Packs/Day Years Used Date Smoking Tobacco: Never Smokeless Tobacco: Never Tobacco Cessation:Counseling Given: Not Answered Alcohol Use Standard Drinks/Week Comments Yes 0 (1 standard drink = 0.6 oz pur e alcohol) socially Sexually Active Control Partners Comments Not Currently Comments No Sex and Gender Information Value Date Recorded Sex Assigned at Not on file Legal Sex Female 12:02 AM CDT Gender Identity Not on file Sexual Orientation Not on file Last Filed Vital Signs Vital Sign Reading Time Taken Comments Blood Pressure 115/58 04/30/2023 8:15 PM FRUIT OR NUT PICKER Pulse 107 04/30/2023 9:45 PM FRUIT OR NUT PICKER Temperature 37.7 C (99.9 F) 04/30/2023 6:53 PM FRUIT OR NUT PICKER Respiratory Rate 19 04/30/2023 6:53 PM FRUIT OR NUT PICKER Oxygen Saturation 99% 04/30/2023 9:45 PM FRUIT OR NUT PICKER Inhaled Oxygen Concentration - - Weight 79.4 kg (175 lb) 04/30/2023 6:53 PM FRUIT OR NUT PICKER Height 162.6 cm (5' 4 ) 04/30/2023 6:53 PM FRUIT OR NUT PICKER Body Mass Index 30.04 04/30/2023 6:53 PM FRUIT OR NUT PICKER Plan of Treatment Upcoming Encounters Date Type Department Care Team (Latest Contact Info) Description 07/16/2024 2:00 PM CDT Telemedicine [facility] - [place] [address] [place] [address] [place] [phone] Judie Jenkins, MARIA G, ICE GRINDER #[address] [facility] [address] [place] [address] 07/22/2024 1:00 PM CDT Outpatient Clinic Visit [facility] [address] [place] [phone] Sujey Francisco, [facility] [address] [place] [address] Discharge Disposition: Discharged to home or Selfcare 08/08/2024 4:45 PM CDT Appointment [facility] [address] [place] [phone] Tatiana Avila, MARIA G, ICE GRINDER 2 [facility] [address] [place] [address] Discharge Disposition: Discharged to home or Selfcare Health Maintenance Due Date Last Done Comments Hepatitis C Virus (HCV) Screening 1984 Mammogram 1984 Hepatitis B Immunization (1 of 3 - 19+ 3-dose series) 06/25/2003 Pap Smear 2005 Cervical Cancer Screening (CCS) 2014 HPV/Cotest 2014 SARS-COV-2 Immunization ( season) 2023 Discussion re Starting/Frequency of Mammograms 2024 Influenza Immunization (Season Ended) 2024 03/08/2015 Respiratory Syncytial Virus (RSV) Immunization (Adult) (1 - 1-dose 75+ series) 06/25/2059 DTaP/Tdap/Td Immunization Discontinued 2018, 08/29/2017 TdaP Immunization Completed 09/04/2018, 08/29/2017 Meningococcal Immunization (ACWY) Aged Out No longer eligible based on patient's age to complete this topic Pneumococcal Immunization Combined Aged Out No longer eligible based on patient's age to complete this topic Rotavirus Immunization Aged Out No lo nger eligible based on patient's age to complete this topic Goals Goal Patient Goal Type Associated Problems Recent Progress Patient-Stated? Author ANXIETY and DEPRESSION Anxiety Yes Sujey Francisco, [facility] Note: I really don't know . Learn to manage anxiety and depression Goal/Objective: Improve coping techniques. Anticipated Time Frame for Goal Completion: 6 months Goal Reviewed with: patient Readiness to change: Ready to change [facility] with goal[facility] Steps to achieve goal: will attend counseling/psychotherapy sessions at least once monthly, at least 6 sessions, utilizing individual and/or group sessions to express thoughts and feelings. to identify, verbalize and process at least three contributing factors/triggers to anxiety and depression. to identify and verbalize at least three actions/skills to prevent and/or cope with anxiety and depression. to put into action, at least one time weekly, for one month, an action/skill to prevent and or cope with anxiety and depression. Insurance [employer]ICA[employer] Care Teams Facer Operator Relationship Specialty Start Date End Date Tatiana Avila, MICROSOFT SYSTEMS ENGINEER, ICE GRINDER [address] [facility], [address] [place] [address] PCP - General Advanced Practice Nurse 06/18/24
[2024-07-15 11:45] VITALS: BP 148/95; PULSE 80; RESP 18; TEMP 36.4; O2SAT 100; BMI 32.2
[2024-07-15 12:04] LABS: BEDSIDEPREGUCG Negative (Negative)
[2024-07-15] MEDS: LACTATED RINGERS 1,000 ML 150 ML IV CONT (12:11)
--- NOTE | 2024-07-15 12:25 | PM.IMHP ---
H&P: HPI History of Present Illness Date/Time: 07/15/24 12:25 Chief Complaint: History of recent diverticulitis- Family history of colon cancer-GERD Narrative: this patient has had 2 episodes of acute diverticulitis, the last one 1 year ago. He was advised to have a colonoscopy after her 2nd attack but has not had a chance until now. Her mother had colorectal cancer at age 50. In addition, patient has frequent heartburn, which is now controlled with daily omeprazole. She is referred for EGD and colonoscopy. Review of Systems Review of Systems: All systems reviewed & are unremarkable except as noted in HPI and below PMFSH Past Medical History Medical History Fatigue Muscle spasm Pelvic pain History of hypertension Depression Anxiety Vitamin D deficiency Diverticulitis Surgical History Surgical History Previous section x3 Family History Family History Mother Carcinoma of colon Cervical cancer Other Colon cancer Social History Social History Smoking status: Never smoker Alcohol intake: current Drinks per week: 6 Alcohol use details: social Substance use: never Substance use type: does not use Living arrangements: with family Gender identity (if verbalized by the patient): Female Spiritual care concerns: No Meds Home Medications and Allergies Home Medications ?Medication ?Instructions ?Recorded ?Confirmed ?Type buspirone 10 mg tablet 10 mg PO TID 05/15/24 07/15/24 History dicyclomine 10 mg capsule 10 mg PO TID #90 caps 05/15/24 07/15/24 Rx fluoxetine 20 mg capsule 20 mg PO DAILY 05/15/24 07/15/24 History omeprazole 40 mg capsule,delayed 40 mg PO DAILY #30 caps 05/15/24 07/15/24 Rx release verapamil 180 mg 24 hr 180 mg PO DAILY 05/15/24 07/07/24 History capsule,extended release losartan 25 mg tablet 25 mg PO DAILY 07/07/24 07/15/24 History verapamil 120 mg 24 hr 120 mg PO DAILY 07/07/24 07/15/24 History capsule,extended release Allergies Allergy/AdvReac Type Severity Reaction Status Date / Time Penicillins Allergy Unknown Verified 07/15/24 11:52 Vital Signs Vital Signs - 24 hr 07/15/24 11:45 Temperature 97.5 F L Pulse Rate 80 Respiratory Rate 18 Blood Pressure 148/95 H Pulse Oximetry 100 Oxygen Delivery Room Air Exam Const: General: cooperative and healthy appearing Resp: Effort & Inspection: normal respiratory effort and able to speak in complete sentences Auscultation: clear to auscultation bilaterally Cardio: Rate: regular rate Rhythm: regular rhythm GI: Inspection: normal to inspection GI Palp: No No hepatosplenomegaly present Auscultation: normal bowel sounds Rectal Exam: deferred Skin: General skin exam: normal color Psych: Appearance: grossly normal Mental Status: mental status grossly normal Assessment and Plan Assessment and plan (1) Diverticulitis: Code(s): K57.92 - Diverticulitis of intestine, part unspecified, without perforation or abscess without bleeding Status: Acute (2) GERD (gastroesophageal reflux disease): Qualifiers: Esophagitis presence: esophagitis presence not specified Qualified Code(s): K21.9 - Gastro-esophageal reflux disease without esophagitis Code(s): K21.9 - Gastro-esophageal reflux disease without esophagitis Status: Acute Assessment and Plan: The patient is deemed a good candidate for the procedures. Consent signed. Will proceed.
--- NOTE | 2024-07-15 12:29 | P.PNAN_ITS ---
Anes - Initial Pre Proc Eval Procedure: Operation Date: 07/15/24 13:00 Proposed Procedures p Esophagogastroduodenoscopy & Colonoscopy - Cullen Obando MD Date/Time: 07/15/24 12:29 Surgeon: Cullen Obando MD Pre Op Diagnosis: GERD/ Family Hx Polyps Patient Data Age: 39 Gender: F Height: 1.63 m Weight: 85.1 kg Last Vital Signs Temp 36.4 C L 07/15/24 11:45 Pulse 80 07/15/24 11:45 Resp 18 07/15/24 11:45 BP 148/95 H 07/15/24 11:45 Pulse Ox 100 07/15/24 11:45 O2 Del Method Room Air 07/15/24 11:45 Allergies Allergy/AdvReac Type Severity Reaction Status Date / Time Penicillins Allergy Unknown Verified 07/15/24 11:52 Home Medications ?Medication ?Instructions ?Recorded ?Confirmed ?Type buspirone 10 mg tablet 10 mg PO TID 05/15/24 07/15/24 History dicyclomine 10 mg capsule 10 mg PO TID #90 caps 05/15/24 07/15/24 Rx fluoxetine 20 mg capsule 20 mg PO DAILY 05/15/24 07/15/24 History omeprazole 40 mg capsule,delayed 40 mg PO DAILY #30 caps 05/15/24 07/15/24 Rx release verapamil 180 mg 24 hr 180 mg PO DAILY 05/15/24 07/07/24 History capsule,extended release losartan 25 mg tablet 25 mg PO DAILY 07/07/24 07/15/24 History verapamil 120 mg 24 hr 120 mg PO DAILY 07/07/24 07/15/24 History capsule,extended release Laboratory Tests 07/15/24 11:45 POC Urine HCG, Qual Negative (Negative) Patient hx anesthesia problems: none Family hx anesthesia problems: none Results Review: All pre-operative results and documents have been reviewed as part of the pre- operative evaluation. [facility] Past Medical History Medical History Fatigue Muscle spasm Pelvic pain History of hypertension Depression Anxiety Vitamin D deficiency Diverticulitis Surgical History Surgical History Previous section x3 Family History Family History Mother Carcinoma of colon Cervical cancer Other Colon cancer Social History Social History Smoking status: Never smoker Alcohol intake: current Drinks per week: 6 Alcohol use details: social Substance use: never Substance use type: does not use Living arrangements: with family Gender identity (if verbalized by the patient): Female Spiritual care concerns: No Anes - Eval Final PreProcedure Day of Procedure 07/15/24 12:29 Patient weight: obese Heart: regular rate and rhythm Lungs: clear to auscultation Airway: Mallampati scale class II Neurological: alert and oriented Last oral intake: >/= 8 hours ASA classification: III Emergent: no Anesthetic plan: proceed Anesthesia type and monitoring: general GIVS and standard monitoring Results Review: All pre-operative results and documents have been reviewed as part of the pre- operative evaluation. Informed Consent: The patient's anesthetic plan and its attendant risks and benefits were discussed with the patient/family/POA. Questions were solicited and answers provided to the satisfaction of the patient/family/POA.
--- NOTE | 2024-07-15 12:47 | SUR.OPER ---
EGD end 1444 [address] START 1249
[2024-07-15 13:03] VITALS: BP 114/63; PULSE 70; RESP 18; O2SAT 99
[2024-07-15 13:13] VITALS: BP 122/74; PULSE 62; RESP 18; O2SAT 99
[2024-07-15 13:23] VITALS: BP 121/64; PULSE 66; RESP 20; O2SAT 100
== END 2024-07-15 13:36 | disposition home or self-care (01) ==
PROVIDERS: Anesthesiology; Referring Provider Nurse Practitioner Family; Visit Provider Internal Medicine Gastroenterology
PROC: 0DJ08ZZ Inspection of Upper Intestinal Tract, Via Natural or Artificial Opening Endoscopic (ICD-10-PCS; CPT 45378; principal; 2024-07-15 13:00)
DX: K57.30 Diverticulosis of large intestine without perforation or abscess without bleeding (principal); K64.8 Other hemorrhoids; K31.89 Other diseases of stomach and duodenum; K29.30 Chronic superficial gastritis without bleeding; K21.9 Gastro-esophageal reflux disease without esophagitis; I10 Essential (primary) hypertension; F32.A Depression, unspecified; F41.9 Anxiety disorder, unspecified; E55.9 Vitamin D deficiency, unspecified; M62.838 Other muscle spasm; E66.9 Obesity, unspecified; Z68.32 Body mass index [BMI] 32.0-32.9, adult; Z98.890 Other specified postprocedural states; Z87.19 Personal history of other diseases of the digestive system; Z83.719 Family history of colon polyps, unspecified; Z80.0 Family history of malignant neoplasm of digestive organs; Z80.49 Family history of malignant neoplasm of other genital organs
CPT/HCPCS: 43239; 45378; 88305; J2003; J2704; J7120